=== PATIENT | female | born 1975 | race Two or more races ===

== ENCOUNTER 2022-08-11 12:45 | Inpatient (IN) | payer OTHER ==
[~2022-08-11] VITALS: Ht 175.3 cm; Wt 117.9 kg
[2022-08-11] MEDS ORDERED: AVALIDE 300-121 EACH PO (14:33)
[2022-08-11] MEDS ORDERED: AMBIEN10 MG PO (14:34)
[2022-08-11] MEDS ORDERED: DIALYVITE TABL1 EACH PO (14:34)
[2022-08-11] MEDS ORDERED: LEXAPRO5 MG PO (14:34)
[2022-08-11] MEDS ORDERED: VISTARIL50 MG PO (14:34)
[2022-08-11] MEDS ORDERED: RENA-VITE RX T1 EACH PO (14:35)
[2022-08-16] MEDS ORDERED: ESCITALOPRAM OX10 MG (13:02)
[2022-08-16] MEDS ORDERED: VITAMIN C100 MG (13:03)
[2022-08-16] MEDS ORDERED: B COMPLEX1 EACH (13:04)
[2022-08-16] MEDS ORDERED: FOLIC ACID1 MG (13:04)
== END 2022-08-19 13:58 | disposition home or self-care (01) | DRG 743 ==
LOC: OB/GYN 08-16 07:00 → O/R 08-16 07:08 → OB/GYN 08-16 12:45
PROVIDERS: ADMIT Obstetrics & Gynecology; ATTEND Obstetrics & Gynecology
PROC: 0UT77ZZ Resection of Bilateral Fallopian Tubes, Via Natural or Artificial Opening (ICD-10-PCS; 2022-08-16)
PROC: 0UT27ZZ Resection of Bilateral Ovaries, Via Natural or Artificial Opening (ICD-10-PCS; 2022-08-16)
PROC: 0UT97ZL Resection of Uterus, Supracervical, Via Natural or Artificial Opening (ICD-10-PCS; principal; 2022-08-16 07:00)
DX: D25.1 Intramural leiomyoma of uterus (principal); N83.11 Corpus luteum cyst of right ovary; Z20.822 Contact with and (suspected) exposure to COVID-19